=== PATIENT | female | born 1945 ===

== ENCOUNTER 2019-03-06 11:30 | Inpatient (IN) | payer OTHER ==
[~2019-03-06] VITALS: Ht 162.6 cm; Wt 89.4 kg
[2019-03-06] MEDS ORDERED: VASOTEC2.5 MG PO (12:31)
== END 2019-03-12 09:59 | disposition home or self-care (01) | DRG 743 ==
LOC: O/R 11:30 → OB/GYN 03-11 05:20 → SURH 03-11 07:00 → OB/GYN 03-11 10:31 → SURH 03-11 11:30 → OB/GYN 03-11 12:57
PROVIDERS: ADMIT Obstetrics & Gynecology Gynecologic Oncology
PROC: 0UT74ZZ Resection of Bilateral Fallopian Tubes, Percutaneous Endoscopic Approach (ICD-10-PCS; 2019-03-11)
PROC: 0UT24ZZ Resection of Bilateral Ovaries, Percutaneous Endoscopic Approach (ICD-10-PCS; 2019-03-11)
PROC: 0UT94ZZ Resection of Uterus, Percutaneous Endoscopic Approach (ICD-10-PCS; principal; 2019-03-11 07:00)
DX: N85.01 Benign endometrial hyperplasia (principal); N72 Inflammatory disease of cervix uteri; I10 Essential (primary) hypertension